=== PATIENT | male | born 1990 | race Two or more races ===

== ENCOUNTER 2019-04-05 05:01 | Day surgery (SDC) | payer OTHER ==
[2019-04-05] MEDS ORDERED: MIDAZOLAM HCL 2 MG/2ML VIAL ONE (06:41)
[2019-04-05] MEDS ORDERED: ROCURONIUM BROMIDE 50 MG/5 ML ONE (06:42)
[2019-04-05] MEDS ORDERED: FENTANYL PF 250MCG/5ML AMPUL ONE (06:42)
[2019-04-05] MEDS ORDERED: BUPIVACAINE 0.25% 75 MG/30 ML VIAL ONE (06:45)
[2019-04-05] MEDS ORDERED: BACITRACIN 50000 UNITS/VIAL ONE (06:51)
[2019-04-05] MEDS ORDERED: ANESTHESIA TRAY IN PYXIS 1 EA TRAY MC ONE (06:51)
[2019-04-05] MEDS ORDERED: CELLULOSE,OXIDIZED 1 EACH EACH MC ONE (08:27)
[2019-04-05] MEDS ORDERED: CELLULOSE,OXIDIZED 1 EA PACK MC ONE (08:29)
[2019-04-05] MEDS ORDERED: BUPIVACAINE 0.5 % PF 150 MG/30 ML VIAL ONE (10:02)
[2019-04-05] MEDS ORDERED: METOCLOPRAMIDE HCL 10 MG/2 ML VIAL ONE (11:32)
== END 2019-04-05 11:50 | disposition home or self-care (01) ==
LOC: DS 05:01
PROVIDERS: ATTEND Student in an Organized Health Care Education/Training Program
DX: S43.112D Subluxation of left acromioclavicular joint, subsequent encounter (principal); D64.9 Anemia, unspecified
CPT/HCPCS: 23550; 73020; A4565; A6402; J0690; J2250; J2405; J2704; J2710; J2765; J3010; J3490 ×3